=== PATIENT | female | born 1965 | race Caucasian/White ===

== ENCOUNTER 2021-11-23 06:05 | Day surgery (SDC) | payer OTHER ==
[2021-11-23] VITALS (9 sets, daily range): BP systolic 113–132; BP diastolic 60–74; O2SAT 91
[~2021-11-23] VITALS: Ht 157.5 cm; Wt 70.0 kg
[2021-11-23] MEDS: ceFAZolin SOD 2 GM in IV 1 EA IV ONE ×2 (06:00→07:50)
[~2021-11-23 06:05] MED LIST: DYMI137S; ESTR62CR PV; METO1TAB7 PO; MONT10TA97 PO; NASA1SPR; SYMB16INH INH; ZYRTTAB8 PO
[2021-11-23] MEDS ORDERED: LR 1,000 ML IV SCH ×2 (06:50→09:35)
[2021-11-23] MEDS ORDERED: CETI10CA2 PO (06:53)
[2021-11-23] MEDS ORDERED: ERGO500029 PO (06:54)
[2021-11-23] MEDS ORDERED: HOME MED LIST COMPLETE! XX SCH (06:55)
[2021-11-23] MEDS ORDERED: LIDOCAINE 2% 100MG/5ML SDV (FOR ANES.) As Ordered ONE (06:55)
[2021-11-23] MEDS ORDERED: propofoL 200 MG/20 ML VIAL As Ordered ONE (06:55)
[2021-11-23] MEDS ORDERED: ROCURONIUM BROMIDE 50 MG/5 ML VIAL As Ordered ONE (06:56)
[2021-11-23] MEDS ORDERED: fentaNYL 100 MCG/2 ML INJECTION As Ordered ONE (07:00)
[2021-11-23] MEDS ORDERED: MIDAZOLAM INJ 2MG/2ML VIAL (J2250 PER 1MG) As Ordered ONE (07:00)
[2021-11-23] MEDS ORDERED: LACRILUBE (AKWA TEARS) OPHTH OINT 3.5 GM As Ordered ONE (07:03)
[2021-11-23] MEDS ORDERED: ISOVUE-300 61% 50ML VIAL As Ordered ONE (07:14)
[2021-11-23] MEDS ORDERED: dexameTHASONE 4 MG/ML 1ML VIAL (J1100 PER 1MG) As Ordered ONE (08:04)
[2021-11-23] MEDS ORDERED: ONDANSETRON 4MG 2ML VIAL As Ordered ONE (08:05)
[2021-11-23] MEDS ORDERED: ACETAMINOPHEN 1000MG 100ML IV BTL (OFIRMEV) (J0131 PER 10MG) As Ordered ONE (08:12)
[2021-11-23] MEDS ORDERED: SUGAMMADEX SODIUM 500 MG/5 ML VIAL (BRIDION) As Ordered ONE (08:14)
[2021-11-23] MEDS ORDERED: ePHEDrine SULFATE 25 MG/5 ML(5MG/ML) SYRINGE As Ordered ONE (08:55)
[2021-11-23] MEDS ORDERED: ONDANSETRON 4MG 2ML VIAL IV PRN ×2 (09:35→14:00)
[2021-11-23] MEDS: fentaNYL 100 MCG/2 ML INJECTION IV PRN ×4 (10:09→10:25)
[2021-11-23] MEDS: oxyCODONE 5MG TAB PO PRN ×3 (10:36→11:38)
[2021-11-23] MEDS ORDERED: MORPHINE 2 MG/ML 1ML VIAL IV PRN (11:10)
[2021-11-23 12:22] LABS: HEMATOCRIT 36.2 % (36.0-47.0); HEMOGLOBIN 11.8 g/dl (12.0-15.5); MEAN CORPUSCULAR HEMOGLOBIN 30.2 pg (27.0-33.0); MEAN CORPUSCULAR HGB CONC 32.6 g/dl (32.0-36.5); MEAN CORPUSCULAR VOLUME 92.6 fl (80.0-96.0); PLATELET COUNT, AUTOMATED 233 10^3/uL (150-450); RED BLOOD COUNT 3.91 10^6/uL (4.00-5.40); WHITE BLOOD COUNT 11.9 10^3/uL (4.0-10.0)
[2021-11-23] MEDS: D5W/0.45% SODIUM CHLORIDE 1,000 ML IV SCH ×2 (12:34→19:55)
[2021-11-23] MEDS: SYMBICORT 160/4.5MCG INHALER 6GM INH SCH ×2 (12:43→19:31)
[2021-11-23 12:49] LABS: ALBUMIN 3.2 GM/DL (3.2-5.2); ALT/SGPT 51 U/L (12-78); BILIRUBIN,TOTAL 0.4 MG/DL (0.2-1.0); BLOOD UREA NITROGEN 12 MG/DL (7-18); CARBON DIOXIDE LEVEL 25 MEQ/L (21-32); CHLORIDE LEVEL 113 MEQ/L (98-107); CREATININE FOR GFR 0.73 MG/DL (0.55-1.30); GLOMERULAR FILTRATION RATE > 60.0 (>51); GLUCOSE, FASTING 142 MG/DL (70-100); POTASSIUM SERUM 3.9 MEQ/L (3.5-5.1); SODIUM LEVEL 143 MEQ/L (136-145)
[2021-11-23] MEDS ORDERED: NORCO, ANEXSIA 5/325MG TABLET (HYDROcodone/ACETAMINOPHEN) PO PRN (15:00)
[2021-11-23] MEDS: ceFAZolin SOD 1 GM in D5W MINI-BAG PLUS 50 ML IV SCH ×2 (16:24→23:45)
[2021-11-23] MEDS ORDERED: MONTELUKAST 10 MG TAB PO SCH (21:00)
[2021-11-23] MEDS: ACETAMINOPHEN TAB 650MG DOSE (2X325MG) PO PRN (21:08)
[2021-11-24 02:00] VITALS: BP 102/58
[2021-11-24] MEDS: D5W/0.45% SODIUM CHLORIDE 1,000 ML IV SCH ×3 (02:50→08:47)
[2021-11-24 04:37] LABS: HEMATOCRIT 30.4 % (36.0-47.0); MEAN CORPUSCULAR HEMOGLOBIN 29.7 pg (27.0-33.0); MEAN CORPUSCULAR HGB CONC 32.2 g/dl (32.0-36.5); MEAN CORPUSCULAR VOLUME 92.1 fl (80.0-96.0); PLATELET COUNT, AUTOMATED 245 10^3/uL (150-450); WHITE BLOOD COUNT 10.8 10^3/uL (4.0-10.0)
[2021-11-24 04:38] LABS: HEMOGLOBIN 9.8 g/dl (12.0-15.5)
[2021-11-24 05:07] LABS: ALBUMIN 2.8 GM/DL (3.2-5.2); ALT/SGPT 36 U/L (12-78); BILIRUBIN,TOTAL 0.3 MG/DL (0.2-1.0); BLOOD UREA NITROGEN 6 MG/DL (7-18); CALCIUM LEVEL 9.8 MG/DL (8.5-10.1); CARBON DIOXIDE LEVEL 26 MEQ/L (21-32); CHLORIDE LEVEL 110 MEQ/L (98-107); CREATININE FOR GFR 0.68 MG/DL (0.55-1.30); GLOMERULAR FILTRATION RATE > 60.0 (>51); GLUCOSE, FASTING 133 MG/DL (70-100); POTASSIUM SERUM 4.2 MEQ/L (3.5-5.1); SODIUM LEVEL 141 MEQ/L (136-145); TOTAL PROTEIN 5.4 GM/DL (6.4-8.2)
[2021-11-24 06:00] VITALS: BP 129/65
[2021-11-24] MEDS: SYMBICORT 160/4.5MCG INHALER 6GM INH SCH (07:43)
[2021-11-24] MEDS: ceFAZolin SOD 1 GM in D5W MINI-BAG PLUS 50 ML IV SCH ×2 (08:00→08:47)
[2021-11-24 08:48] VITALS: BP 125/79
[2021-11-24] MEDS: ACETAMINOPHEN TAB 650MG DOSE (2X325MG) PO PRN (08:48)
[2021-11-24] MEDS ORDERED: METOPROLOL SUCC (TopROL XL) 50MG **XL** TAB PO SCH (09:00)
[2021-11-24] MEDS ORDERED: oxyBUTYnin 5 MG TAB PO ONE (11:00)
[2021-11-27 20:08] LABS: CA Oxalate Dihy 60 % (.); Ca Ox Monohydrate 20 % (.); Size 3x3 mm (.)
== END 2021-11-24 10:21 | disposition home or self-care (01) ==
LOC: M SDC 06:05 → UNDOADMIN 06:05 → M OR 06:05 → EDSTATUS 07:30 → M OR 12:25 → M MSPAV 12:25 → M SDC 11-24 10:21 → UNDODISIN 11-24 10:21
PROVIDERS: ATTEND Urology
DX: N20.0 Calculus of kidney (principal); Z88.5 Allergy status to narcotic agent
CPT/HCPCS: 36415; 50080; 74018; 76000; 80053; 82365; 85027; 96374; 96375; 96376; C1769; C1887; C2617; J0131; J0690; J1100; J2250; J2270; J2405; J3010; Q9967

== ENCOUNTER 2021-12-24 07:50 | Day surgery (SDC) | payer OTHER ==
[~2021-12-24] VITALS: Ht 157.5 cm; Wt 69.4 kg
[~2021-12-24 07:50] MED LIST changes: +CETI10CA2 PO; +ERGO500029 PO; +ceFAZolin SOD 2 GM in IV 1 EA IV ONE
[2021-12-24] MEDS ORDERED: MIDAZOLAM INJ 2MG/2ML VIAL (J2250 PER 1MG) As Ordered ONE (08:42)
[2021-12-24] MEDS ORDERED: propofoL 200 MG/20 ML VIAL As Ordered ONE (08:43)
[2021-12-24] MEDS ORDERED: LIDOCAINE 2% 100MG/5ML SDV (FOR ANES.) As Ordered ONE (08:43)
[2021-12-24] MEDS ORDERED: SCOPOLAMINE 1MG TRANSDERMAL PATCH As Ordered ONE (09:26)
[2021-12-24] MEDS ORDERED: HYDR-3713 PO (09:39)
[2021-12-24] MEDS ORDERED: ACETAMINOPHEN 1000MG 100ML IV BTL (OFIRMEV) (J0131 PER 10MG) As Ordered ONE (09:39)
[2021-12-24] MEDS ORDERED: MACR100C43 PO (09:39)
[2021-12-24 10:41] VITALS: BP 139/81
== END 2021-12-24 10:45 | disposition home or self-care (01) ==
LOC: M SDC 07:50
PROVIDERS: ATTEND Urology
DX: N20.0 Calculus of kidney (principal); I10 Essential (primary) hypertension; M54.9 Dorsalgia, unspecified; D64.9 Anemia, unspecified; E78.5 Hyperlipidemia, unspecified; R74.8 Abnormal levels of other serum enzymes; R73.01 Impaired fasting glucose; J30.89 Other allergic rhinitis; K21.9 Gastro-esophageal reflux disease without esophagitis; H57.02 Anisocoria; N28.89 Other specified disorders of kidney and ureter; K82.4 Cholesterolosis of gallbladder; Z79.899 Other long term (current) drug therapy; Z79.51 Long term (current) use of inhaled steroids; Z88.2 Allergy status to sulfonamides; Z88.5 Allergy status to narcotic agent
CPT/HCPCS: 50590; 74018; J0131; J0690; J2250

== ENCOUNTER 2021-12-28 14:24 | Day surgery (SDC) | payer OTHER ==
[~2021-12-28] VITALS: Ht 157.5 cm; Wt 70.0 kg
[~2021-12-28 14:24] MED LIST changes: +HYDR-3713 PO; +MACR100C43 PO; -ceFAZolin SOD 2 GM in IV 1 EA IV ONE
[2021-12-28] MEDS ORDERED: LR 1,000 ML IV SCH ×2 (14:35→18:45)
[2021-12-28] MEDS ORDERED: ceFAZolin SOD 2 GM in IV 1 EA IV ONE (15:15)
[2021-12-28] MEDS ORDERED: DITR5TAB PO (15:30)
[2021-12-28] MEDS ORDERED: ALEV220T22 PO (15:30)
[2021-12-28] MEDS ORDERED: OXYB5TAB10 PO ×2 (15:44→16:55)
[2021-12-28] MEDS ORDERED: PHEN1TAB73 PO (15:44)
[2021-12-28] MEDS ORDERED: SCOPOLAMINE 1MG TRANSDERMAL PATCH TOP ONE (15:55)
[2021-12-28] MEDS ORDERED: MIDAZOLAM INJ 2MG/2ML VIAL (J2250 PER 1MG) As Ordered ONE (16:32)
[2021-12-28] MEDS ORDERED: ONDANSETRON 4MG 2ML VIAL As Ordered ONE (16:33)
[2021-12-28] MEDS ORDERED: propofoL 200 MG/20 ML VIAL As Ordered ONE (16:33)
[2021-12-28] MEDS ORDERED: fentaNYL 100 MCG/2 ML INJECTION As Ordered ONE (16:33)
[2021-12-28] MEDS ORDERED: dexameTHASONE 4 MG/ML 1ML VIAL (J1100 PER 1MG) As Ordered ONE (16:33)
[2021-12-28] MEDS ORDERED: LIDOCAINE 2% 100MG/5ML SDV (FOR ANES.) As Ordered ONE (16:33)
[2021-12-28] MEDS ORDERED: ULTR50TA8 PO (16:55)
[2021-12-28] MEDS ORDERED: ISOVUE-300 61% 50ML VIAL As Ordered ONE (16:58)
[2021-12-28] MEDS ORDERED: KETAMINE HCL 200 MG/20 ML VIAL As Ordered ONE (17:17)
[2021-12-28] MEDS ORDERED: ACETAMINOPHEN 1000MG 100ML IV BTL (OFIRMEV) (J0131 PER 10MG) As Ordered ONE (17:21)
[2021-12-28] MEDS ORDERED: KETOROLAC 60MG 2ML VIAL As Ordered ONE (18:32)
[2021-12-28] MEDS ORDERED: oxyCODONE 5MG TAB PO PRN (18:45)
[2021-12-28] MEDS ORDERED: ONDANSETRON 4MG 2ML VIAL IV PRN (18:45)
[2021-12-28] MEDS ORDERED: oxyBUTYnin 5 MG TAB PO PRN (19:20)
[2021-12-28] MEDS ORDERED: traMADol 50 MG TAB PO PRN (19:20)
[2021-12-28 19:35] VITALS: BP 141/68
[2022-01-04 16:08] LABS: CA Oxalate Dihy 90 % (.); Size 7x3 mm (.)
== END 2021-12-28 19:45 | disposition home or self-care (01) ==
LOC: M SDC 14:24
PROVIDERS: ATTEND Urology
DX: N13.1 Hydronephrosis with ureteral stricture, not elsewhere classified (principal); Z88.5 Allergy status to narcotic agent
CPT/HCPCS: 52332; 52352; 74420; 82365; C1769; C1894; C2617; J0131; J0690; J1100; J1885; J2250; J2405; J3010; Q9967

== ENCOUNTER → 2024-09-25 | Outpatient (REF) | payer OTHER ==
[~2024-09-25] MED LIST changes: +ALEV220T22 PO; +DITR5TAB PO; +OXYB5TAB14 PO; +PHEN1TAB73 PO; +ULTR50TA8 PO
[2024-09-25 13:36] LABS: AMORPHOUS SEDIMENT SMALL (NEGATIVE); APPEARANCE, URINE CLEAR (CLEAR); BACTERIA, URINE AUTO NEGATIVE (NEGATIVE); BILIRUBIN, URINE AUTO NEGATIVE (NEGATIVE); BLOOD, URINE BLOOD NEGATIVE (NEGATIVE); GLUCOSE, URINE (UA) AUTO NEGATIVE (NEGATIVE); KETONE, URINE AUTO NEGATIVE (NEGATIVE); LEUKOCYTE ESTERASE, URINE AUTO NEGATIVE (NEGATIVE); MUCUS, URINE SMALL (NEGATIVE); NITRITE, URINE AUTO NEGATIVE (NEGATIVE); PROTEIN, URINE AUTO NEGATIVE (NEGATIVE); RBC, URINE AUTO 0 /HPF (0-3); SPECIFIC GRAVITY URINE AUTO 1.009 (1.002-1.035); SQUAMOUS EPITHELIAL CELL UR AU 0 /HPF (0-6); UROBILINOGEN, URINE AUTO 0.2 mg/dL (0.0-2.0); WBC, URINE AUTO 0 /HPF (0-3)
== END ==
LOC: M SMT 13:01
PROVIDERS: ATTEND Urology
DX: N20.0 Calculus of kidney (principal)